=== PATIENT | male | born 1985 | race Caucasian/White ===

== ENCOUNTER 2025-02-17 16:26 | Emergency (ER) | payer OTHER ==
[~2025-02-17] VITALS: Ht 188 cm; Wt 99.8 kg
[2025-02-17] MEDS ORDERED: ACETAMINOPHEN ES 500 MG TABLET ONE (16:59)
[2025-02-17] MEDS ORDERED: KETOROLAC TROMETHAMINE INJ 30 MG/ML VIAL ONE (16:59)
[2025-02-17] MEDS: ACETAMINOPHEN ES 500 MG TABLET PO ONE (17:07)
[2025-02-17] MEDS: KETOROLAC TROMETHAMINE INJ 30 MG/ML VIAL IM ONE (17:08)
[2025-02-17] MEDS ORDERED: ACET-2030 PO (18:32)
[2025-02-17] MEDS ORDERED: IBUP-1955 PO (18:32)
[2025-02-17 18:33] VITALS: BP 127/61; TEMP 98; O2SAT 97
== END 2025-02-17 18:34 | disposition home or self-care (01) ==
LOC: ER 16:35
DX: S89.91XA Unspecified injury of right lower leg, initial encounter (principal); F17.200 Nicotine dependence, unspecified, uncomplicated; M25.551 Pain in right hip; W01.0XXA Fall on same level from slipping, tripping and stumbling without subsequent striking against object, initial encounter; Y93.89 Activity, other specified; Y92.89 Other specified places as the place of occurrence of the external cause; Y99.8 Other external cause status
CPT/HCPCS: 99285; 73700; 96372; J1885